=== PATIENT | male | born 1985 | race Caucasian/White ===

== ENCOUNTER 2021-07-01 18:52 | Emergency (ER) | payer SELFPAY ==
[~2021-07-01] VITALS: Ht 177.8 cm; Wt 95.3 kg
--- OUTSIDE RECORDS SUMMARY | 2021-07-01 19:03 | XMS REPORT | Clinical Summary ---
Author Author [facility] Organization [facility] Address Unknown Phone Unavailable Care Team Providers Care Retail Pos Specialist Name Role Phone PCP Unavailable Source Comments [facility] (Labor and Delivery) documents do not appear in the [facility] Allergies Not on File Medications Please verify current medications with patient. Not on file Active Problems Not on file Social History Date Tobacco Use Types Packs/Day Years Used Never Assessed Sex Assigned at Date Recorded Not on file Last Filed Vital Signs Not on file Plan of Treatment Health Maintenance Due Date Last Done Comments Lipid Panel 1986 COVID-19 Vaccine (1) 1991 Influenza Vaccine (#1) 2021 HPV Vaccine Aged Out No longer eligible based on patient's age to complete this topic Hepatitis A Vaccine Aged Out No longer eligible based on patient's age to complete this topic Hepatitis B Vaccine Aged Out No longer eligible based on patient's age to complete this topic Hib Vaccine Aged Out No longer eligible based on patient's age to complete this topic IPV Vaccine Aged Out No longer eligible based on patient's age to complete this topic Meningococcal Vaccine Aged Out No longer eligib le based on patient's age to (MCV4) complete this topic Pneumococcal Vaccine: Aged Out No longer eligib le based on patient's age to Pediatrics (0 to 5 Years) complete this topic and At-Risk Patients (6 to 64 Years) Rotavirus Vaccine Aged Out No longer eligible based on patient's age to complete this topic Results Not on filefrom Last 3 Months
--- OUTSIDE RECORDS SUMMARY | 2021-07-01 19:03 | XMS REPORT ---
Author Author German CHOUDHURY Organization [facility] Address [address] [place], [place] [id number] Care Team Providers Care Site Leasing Agent Name Role Phone AISHA CHOUDHURY PCP AISHA CHOUDHURY PreferredProvider Allergies and Adverse Reactions Name Reaction Notes No known drug allergy Plan of Treatment Not available. Medications Active Name Start Date Estimated Completion Date SIG Co mments clonazepam 1 mg oral tablet 04/11/2021 TAKE 1/2 TO 1 TABLET BY MOUTH TWICE DAILY NEEDED Adderall 30 mg oral tablet 05/10/2021 06/09/2021 take 1 tablet (30 mg) by oral route 2 times per day before breakfast and at noon for 30 days Name Start Date Expiration Date SIG Comments Zithromax Z-Kwame 250 mg oral tablet 04/27/2018 05/02/2018 take 2 tablets (500 mg) by oral route once daily for 1 day then 1 tablet (250 mg) by oral route once daily for 4 days Suphedrine 30 mg oral tablet 11/15/2018 11/15/2018 rozina e 1-2 tablets by oral route every 4 hours as needed Zithromax Z-Kwame 250 mg oral tablet 03/02/2019 03/07/2019 take 2 tablets (500 mg) by oral route once daily for 1 day then 1 tablet (250 mg) by oral route once daily for 4 days doxycycline hyclate 100 mg oral tablet 06/02/2019 06/12/2019 take 1 tablet (100 mg) by oral route 2 times per day for 10 days methylprednisolone 4 mg oral tablets,dose pack 07/08/2019 FOLLOW PACKAGE DIRECTIONS UNTIL ALL TAKEN prednisone 20 mg oral tablet 02/16/2020 02/24/2020 4X2 days 3x2 days 2x2 days 1x2 days Cipro 500 mg oral tablet 02/16/2020 02/26/2020 take 1 tablet (500 mg) by oral route 2 times per day for 10 days Ciprodex 0.3-0.1 % otic (ear) drops,suspension 02/16/2020 instill 4 drops into left ear by otic route 2 times per day for 7 days Discontinued Name Start Date Discontinued Date SIG Comments Jose Escudero 100 mg oral capsule 08/21/2017 10/04/2018 take 1-2 capsule by oral route Q4-6H PRN cough amoxicillin 500 mg oral capsule 08/31/2017 10/04/2018 take one TID Provigil 200 mg oral tablet 03/02/2018 08/10/2018 take 1 tablet (200 mg) by oral route once daily in the morning for 30 days Flagyl 500 mg oral tablet 03/19/2018 10/04/2018 take 2 tablets (1 gram) by oral route every 6 hours for 10 days Xanax 0.5 mg oral tablet 04/22/2018 10/04/2018 1/2 to 1 twice daily as needed for anxiety must last 30 days prednisone 20 mg oral tablet 05/13/2018 10/04/2018 4 x 2 days, 3 x 2 days, 2 x 2 days 1 x 2 days Chantix Starting Month Box 0.5 mg (11)- 1 mg (42) oral tablets,dose pack 08/09/2018 10/04/2018 TAKE DIRECTED FOR 30 DAYS promethazine-codeine 6.25-10 mg/5 mL oral syrup 08/09/2018 10/04/2018 TAKE 5 MILLILITERS BY ORAL ROUTE EVERY 4-6 HOURS NEEDED, NOT TO EXCEED 30 ML IN 24 HOURS Cipro 500 mg oral tablet 08/09/2018 10/04/2018 TAKE 1 TABLET (500 MG) BY ORAL ROUTE 2 TIMES PER DAY FOR 10 DAYS fluticasone propionate 50 mcg/actuation nasal spray,suspensi on 11/11/2018 09/12/2019 spray 1 spray (50 mcg) in each nostril by intranasal r oute once daily uvdzhcwg-xeudhfgca-HU 3.5-10,000-1 mg/mL-unit/mL-% radha c (ear) drops,suspension 11/15/2018 07/19/2019 instill 4 drops into affecte d ear(s) by otic route 3 times per day Cipro 500 mg oral tablet 11/15/2018 12/04/2018 take 1 tablet (500 mg) by oral route 2 times per day Ventolin HFA 90 mcg/actuation inhalation HFA aerosol inhaler 12/1311/20/2020 inhale 1 puff (90 mcg) by inhalation route every 6 hours as needed alprazolam 0.5 mg oral tablet 01/12/2019 07/19/2019 TA KE 06/09 TO 1 TABLET BY MOUTH TWICE DAILY NEEDED FOR ANXIETY- MUST LAST 30 DAYS promethazine-codeine 6.25-10 mg/5 mL oral syrup 03/08/2019 07/19/2019 take 5 milliliters by oral route every 6 hours as needed, not to exceed 30 mL in 24 hours prednisone 20 mg oral tablet 06/02/2019 07/19/2019 4x2 days 3x2 days 2x2 days 1x2 days Medrol (Kwame) 4 mg oral tablets,dose pack 06/16/2019 07/19/2019 take as directed Symbicort 160-4.5 mcg/actuation inhalation HFA aerosol inhal er 06/16/2019 11/20/2020 inhale 2 puffs by inhalation route 2 chris es per day in the morning and evening modafinil 200 mg oral tablet 06/20/2019 07/19/2019 ROZINA E 1 TABLET BY MOUTH EVERY DAY Adderall XR 20 mg oral capsule,extended release 24hr 08/16/2019 09/08/2019 take 1 capsule (20 mg) by oral route once daily in the morning upon awakening for 30 days promethazine-codeine 6.25-10 mg/5 mL oral syrup 02/16/2020 04/09/2020 take 5 milliliters by oral route every 6 hours as needed, not to exceed 30 mL in 24 hours Maxitrol 3.5mg/mL-10,000 unit/mL-0.1 % ophthalmic (eye ) drops,suspension 02/16/2020 04/09/2020 1 drop into affected eye(s) by ophthalmic route every 4 hours for 3 days Problem List Description Status Onset VIVI (generalized anxiety disorder) Active 12/30 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 Moderate episode of recurrent major depressive disorder Acti ve 12/04/2018 Concentration deficit Active 07/19/2019 Generalized anxiety disorder Active 07/19/2019 Attention deficit disorder (ADD) without hyperactivity Activ e 09/12/2019 Vital Signs Date Time BP-Sys(mm[Hg] BP-Sharonda(mm[Hg]) HR(bpm) RR(rpm) Temp WT HT HC BMI BSA BMI Percentile O2 Sat(%) 05/14/2020 5:03:00 PM 73 {beats}/min 98.6 F 95 % 07/18/2019 4:42:00 PM 130 mm[Hg] 78 mm[Hg] 70 {beats}/min 16 rpm 98.8 F 198.562 lbs 71 in 27.6936 kg/m2 2.1241 m2 97 % 03/08/2019 12:58:00 PM 128 mm[Hg] 86 mm[Hg] 68 {beats}/min 18 rpm 98.2 F 194 lbs 71 in 27.06 kg/m2 2.10 m2 98 % 12/21/2018 3:18:00 PM 170 mm[Hg] 100 mm[Hg] 90 {beats}/min 18 rpm 98.1 F 194 lbs 70 in 27.8358 kg/m2 2.0847 m2 98 % 11/24/2018 3:21:00 PM 108 mm[Hg] 60 mm[Hg] 56 {beats}/min 16 rpm 98.4 F 199 lbs 98 % 11/15/2018 2:45:00 PM 134 mm[Hg] 70 mm[Hg] 84 {beats}/min 18 rpm 98.1 F 197 lbs 70 in 28.2663 kg/m2 2.1008 m2 98 % 11/04/2018 1:27:00 PM 120 mm[Hg] 74 mm[Hg] 78 {beats}/min 18 rpm 98.2 F 196 lbs 70 in 28.12 kg/m2 2.10 m2 98 % 10/04/2018 2:47:00 PM 120 mm[Hg] 70 mm[Hg] 71 {beats}/min 18 rpm 99.1 F 199.437 lbs 70 in 28.616 kg/m2 2.1137 m2 97 % 07/01/2018 11:13:00 AM 124 mm[Hg] 72 mm[Hg] 69 {beats}/min 18 rpm 98.6 F 200 lbs 70 in 28.70 kg/m2 2.12 m2 98 % 05/03/2018 9:23:00 AM 138 mm[Hg] 80 mm[Hg] 88 {beats}/min 18 rpm 98.4 F 198 lbs 98 % 04/27/2018 8:44:00 AM 146 mm[Hg] 72 mm[Hg] 88 {beats}/min 18 rpm 98.4 F 201 lbs 98 % 04/07/2018 9:10:00 AM 132 mm[Hg] 78 mm[Hg] 80 {beats}/min 18 rpm 98.4 F 209 lbs 70 in 29.9881 kg/m2 2.1638 m2 98 % 03/02/2018 3:18:00 PM 122 mm[Hg] 70 mm[Hg] 75 {beats}/min 18 rpm 98.1 F 210 lbs 70 in 30.13 kg/m2 2.17 m2 97 % 12/16/2017 8:53:00 AM 140 mm[Hg] 82 mm[Hg] 78 {beats}/min 18 rpm 98.4 F 212 lbs 70 in 30.4185 kg/m2 2.1793 m2 98 % 09/15/2017 12:54:00 PM 128 mm[Hg] 84 mm[Hg] 72 {beats}/min 18 rpm 98 F 225 lbs 68 in 34.21 kg/m2 2.21 m2 99 % 08/21/2017 11:21:00 AM 138 mm[Hg] 84 mm[Hg] 80 {beats}/min 18 rpm 98.2 F 213 lbs 70 in 30.562 kg/m2 2.1844 m2 97 % 07/21/2017 1:18:00 PM 128 mm[Hg] 78 mm[Hg] 72 {beats}/min 18 rpm 98 F 214 lbs 70 in 30.71 kg/m2 2.19 m2 98 % 12/30/2016 8:28:00 AM 138 mm[Hg] 86 mm[Hg] 68 {beats}/min 16 rpm 96.8 F 223 lbs 69 in 32.931 kg/m2 2.2191 m2 98 % Social History Name Description Comments Tobacco Current every day smoker Alcohol Never Uses seatbelts History of Procedures Date Ordered Description Order Status 02/20/2017 12:00 AM COMPLETE CBC W/AUTO DIFF WBC Returned 02/20/2017 12:00 AM COMPREHEN METABOLIC PANEL Returned 02/20/2017 12:00 AM LIPID PANEL Returned 02/20/2017 12:00 AM ROUTINE VENIPUNCTURE Reviewed 08/21/2017 12:00 AM THER/PROPH/DIAG INJ SC/IM Reviewed 08/21/2017 12:00 AM Decadron 8mg Injection Reviewed 08/21/2017 12:00 AM Depo-Medrol 80mg Injection Reviewed 12/16/2017 12:00 AM THER/PROPH/DIAG INJ SC/IM Reviewed 12/16/2017 12:00 AM Toradol 60 Mg Injection Reviewed 12/16/2017 12:00 AM Depo-Medrol 80mg Injection Reviewed 12/16/2017 12:00 AM Decadron 8mg Injection Reviewed 02/25/2018 12:00 AM THER/PROPH/DIAG INJ SC/IM Reviewed 02/25/2018 12:00 AM Decadron 8mg Injection Reviewed 02/25/2018 12:00 AM Depo-Medrol 80mg Injection Reviewed 04/07/2018 12:00 AM THER/PROPH/DIAG INJ SC/IM Reviewed 04/07/2018 12:00 AM Decadron 8mg Injection Reviewed 04/07/2018 12:00 AM Depo-Medrol 80mg Injection Reviewed 04/27/2018 12:00 AM THER/PROPH/DIAG INJ SC/IM Reviewed 04/27/2018 12:00 AM Decadron 8mg Injection Reviewed 04/27/2018 12:00 AM Depo-Medrol 80mg Injection Reviewed 04/27/2018 12:00 AM Rocephin 1 gram Injection Reviewed 07/01/2018 12:00 AM THER/PROPH/DIAG INJ SC/IM Reviewed 07/01/2018 12:00 AM Decadron 8mg Injection Reviewed 07/01/2018 12:00 AM Depo-Medrol 80mg Injection Reviewed 10/04/2018 12:00 AM THER/PROPH/DIAG INJ SC/IM Reviewed 10/04/2018 12:00 AM Decadron 8mg Injection Reviewed 10/04/2018 12:00 AM Depo-Medrol 80mg Injection Reviewed 11/04/2018 12:00 AM THER/PROPH/DIAG INJ SC/IM Reviewed 11/04/2018 12:00 AM Decadron 8mg Injection Reviewed 11/04/2018 12:00 AM Depo-Medrol 80mg Injection Reviewed 11/15/2018 12:00 AM THER/PROPH/DIAG INJ SC/IM Reviewed 11/15/2018 12:00 AM Decadron 8mg Injection Reviewed 03/08/2019 12:00 AM THER/PROPH/DIAG INJ SC/IM Reviewed 03/08/2019 12:00 AM Decadron 8mg Injection Reviewed 03/08/2019 12:00 AM Depo-Medrol 80mg Injection Reviewed 03/08/2019 12:00 AM Rocephin 1 gram Injection Reviewed 07/18/2019 12:00 AM THER/PROPH/DIAG INJ SC/IM Reviewed 07/18/2019 12:00 AM Decadron 8mg Injection Reviewed 07/18/2019 12:00 AM Depo-Medrol 80mg Injection Reviewed 05/14/2020 12:00 AM COVID-19 Testing Returned Results Summary Not available. History Of Immunizations Not available. History of Past Illness Name Date of Onset Comments Anxiety Bronchitis Depression VIVI (generalized anxiety disorder) 12/30/2016 Shift work sleep disorder 09/16/2017 Gallbladder Disorder Moderate episode of recurrent major depressive disorder 11/07 Concentration deficit 07/19/2019 Generalized anxiety disorder 07/19/2019 Attention deficit disorder (ADD) without hyperactivity 09/11 Moderate Chronic VIVI (generalized anxiety disorder) Stable J 2016 8:28AM medical terminologist current use of therapeutic drug Feb 20 2017 10:53A M Hyperlipidemia, mild Feb 20 2017 10:53AM Smoker Jul 21 2017 1:19PM Tobacco abuse Jul 21 2017 1:19PM VIVI (generalized anxiety disorder) Jul 21 2017 1:19PM Medication management Jul 21 2017 1:19PM Cough Aug 21 2017 11:24AM Purulent postnasal drainage Aug 21 2017 11:24AM Chest congestion Aug 21 2017 11:24AM Upper respiratory tract infection, unspecified type Aug 21 2 018 11:24AM Smoker Aug 21 2017 11:24AM Severe Acute Shift work sleep disorder Sep 15 2017 12:55PM Moderate Chronic VIVI (generalized anxiety disorder) Stable A 2017 12:55PM Acute midline low back pain without sciatica Dec 16 2017 8: 53AM Contusion of right side of back, initial encounter Dec 16 8:53AM Cough Mar 02 2018 3:23PM Chest congestion Mar 02 2018 3:23PM Medication management Mar 02 2018 3:23PM Upper respiratory tract infection, unspecified type Mar 02 2 018 3:23PM Acute seasonal allergic rhinitis, unspecified trigger Mar 02 2018 3:23PM Severe Chronic Daytime sleepiness Mar 02 2018 3:23PM Purulent postnasal drainage Apr 07 2018 9:10AM Sinus pressure Apr 07 2018 9:10AM Acute seasonal allergic rhinitis, unspecified trigger Apr 07 2018 9:10AM Upper respiratory tract infection, unspecified type Apr 07 2 018 9:10AM Upper respiratory tract infection, unspecified type Apr 27 2 018 8:45AM Cough Apr 27 2018 8:45AM Fever Apr 27 2018 8:45AM Acute bronchitis, unspecified organism May 03 2018 9:23AM Chest congestion May 03 2018 9:23AM Smoker May 03 2018 9:23AM Productive cough May 03 2018 9:23AM Purulent postnasal drainage Apr 27 2018 8:45AM Chest congestion Apr 27 2018 8:45AM Cough Jul 01 2018 11:15AM Purulent postnasal drainage Jul 01 2018 11:15AM Upper respiratory tract infection, unspecified type Jul 01 2 019 11:15AM Sinus pressure Jul 01 2018 11:15AM Chest congestion Jul 01 2018 11:15AM Smoker Jul 01 2018 11:15AM Chest congestion Oct 04 2018 2:48PM Sinus pressure Oct 04 2018 2:48PM Acute seasonal allergic rhinitis, unspecified trigger Oct 04 2018 2:48PM Generalized anxiety disorder Oct 04 2018 2:48PM Medication management Oct 04 2018 2:48PM Purulent postnasal drainage Oct 04 2018 2:48PM Upper respiratory tract infection, unspecified type Oct 04 019 2:48PM Dysfunction of right eustachian tube Nov 04 2018 1:30PM Purulent postnasal drainage Nov 04 2018 1:30PM Acute seasonal allergic rhinitis, unspecified trigger Nov 04 2018 1:30PM Nasal congestion with rhinorrhea Nov 04 2018 1:30PM Dysfunction of both eustachian tubes Nov 15 2018 2:46PM Sinus pressure Nov 15 2018 2:46PM Purulent postnasal drainage Nov 15 2018 2:46PM Upper respiratory tract infection, unspecified type Nov 15 019 2:46PM Smoker Nov 15 2018 2:46PM Moderate episode of recurrent major depressive disorder Nov 24 2018 3:22PM Anxiety Nov 24 2018 3:22PM Medication management Nov 24 2018 3:22PM Generalized anxiety disorder Dec 21 2018 3:18PM Moderate episode of recurrent major depressive disorder Dec 21 2018 3:18PM Medication management Dec 21 2018 3:18PM Dysfunction of both eustachian tubes Mar 08 2019 12:59PM Cough Mar 08 2019 12:59PM Chest congestion Mar 08 2019 12:59PM Upper respiratory tract infection, unspecified type Mar 08 2 019 12:59PM Concentration deficit Jul 18 2019 4:44PM Shift work sleep disorder Jul 18 2019 4:44PM Hypersomnolence disorder, acute, moderate Jul 18 2019 4:44P M Smoker Jul 18 2019 4:44PM Current moderate episode of major depres sive disorder, unspecified whether recurrent Jul 18 2019 4:44PM Generalized anxiety disorder Jul 18 2019 4:44PM Attention deficit disorder (ADD) without hyperactivity Sep 09 2019 12:47PM Medication care plan discussed with patient Sep 09 2019 12:4 7PM Concentration deficit Sep 09 2019 12:47PM Medication refill Nov 30 2019 8:07AM Attention deficit disorder (ADD) without hyperactivity Nov 072019 8:07AM VIVI (generalized anxiety disorder) Nov 30 2019 8:07AM Acute otitis externa of right ear, unspecified type Feb 15 11:41AM Ear pain, right Feb 16 2020 11:41AM Medication refill Mar 30 2020 10:57AM Attention deficit disorder (ADD) without hyperactivity Mar 092019 10:57AM VIVI (generalized anxiety disorder) Mar 30 2020 10:57AM Encounter for laboratory testing for COVID-19 virus May 14 11:18AM Cough May 14 2020 11:18AM Shortness of breath May 14 2020 11:18AM Fatigue May 14 2020 11:18AM Chills May 14 2020 11:18AM Fever, unspecified May 14 2020 11:18AM Sore throat May 14 2020 11:18AM Myalgia May 14 2020 11:18AM Headache May 14 2020 11:18AM Loss of smell May 14 2020 11:18AM Loss of taste May 14 2020 11:18AM Medication refill Nov 20 2020 2:34PM Attention deficit disorder (ADD) without hyperactivity Nov 062020 2:34PM VIVI (generalized anxiety disorder) Nov 20 2020 2:34PM Medication refill Apr 11 2021 1:32PM Attention deficit disorder (ADD) without hyperactivity Apr 11 2021 1:32PM VIVI (generalized anxiety disorder) Apr 11 2021 1:32PM Payers Insurance Name Company Name Plan Name Plan Number Policy Number [place] Group Number Start Date [id number] N/ A Cigna Cigna [id number] N/A [facility] [id number] [facility] [id number] N/A [employer] - COVID 19 Test [id number] N/A History of Encounters Visit Date Visit Type Provider 04/11/2021 Office visit AISHA CHOUDHURY PA 11/20/2020 Office visit AISHA CHOUDHURY PA 05/14/2020 Office visit Miranda PIMENTEL RN 03/26/2020 Office visit AISHA CHOUDHURY PA 02/16/2020 Office visit AISHA CHOUDHURY PA 11/30/2019 Office visit AISHA CHOUDHURY PA 09/08/2019 Office visit AISHA CHOUDHURY PA 07/18/2019 Office visit AISHA CHOUDHURY PA 03/22/2019 [facility] Nathan Samayoa MD 03/08/2019 Office visit AISHA CHOUDHURY PA 12/21/2018 Office visit AISHA CHOUDHURY PA 11/24/2018 Office visit AISHA CHOUDHURY PA 11/15/2018 Office visit AISHA CHOUDHURY PA 11/04/2018 Office visit AISHA CHOUDHURY PA 10/04/2018 Office visit AISHA CARNES 07/01/2018 Office visit AISHA CHOUDHURY PA 05/03/2018 Office visit AISHA CHOUDHURY PA 04/27/2018 Office visit AISHA CHOUDHURY PA 04/07/2018 Office visit AISHA CHOUDHURY PA 02/25/2018 Office visit AISHA CARNES 12/16/2017 Office visit AISHA CHOUDHURY PA 09/15/2017 Office visit AISHA CHOUDHURY PA 08/21/2017 Office visit AISHA CHOUDHURY PA 07/21/2017 Office visit AISHA CHOUDHURY PA 02/20/2017 Laboratory AISHA CHOUDHURY PA 12/30/2016 Office visit AISHA CARNES
[2021-07-01] MEDS ORDERED: KETOROLAC 30 MG/ML VIAL IVP STA (19:35)
[2021-07-01] MEDS ORDERED: LACTATED RINGERS 1,000 ML IV ONE ×2 (19:45→20:45)
[2021-07-01 19:56] LABS: BASOPHILS % (AUTO) 0 % (0-10); EOSINOPHILS # (AUTO) 0.3 10^3/uL (0.0-0.3); EOSINOPHILS % (AUTO) 1 % (0-10); HEMATOCRIT 46 % (40-54); HEMOGLOBIN 14.9 g/dL (13.3-17.7); LYMPHOCYTES # (AUTO) 4.8 10^3/uL (1.0-4.0); LYMPHOCYTES % (AUTO) 23 % (12-44); MEAN CORPUSCULAR HEMOGLOBIN 29 pg (25-34); MEAN CORPUSCULAR HGB CONC 32 g/dL (32-36); MEAN CORPUSCULAR VOLUME 91 fL (80-99); MONOCYTES % (AUTO) 5 % (0-12); NEUTROPHILS # (AUTO) 14.6 10^3/uL (1.8-7.8); NEUTROPHILS % (AUTO) 70 % (42-75); PLATELET COUNT 322 10^3/uL (130-400); WHITE BLOOD COUNT 20.8 10^3/uL (4.3-11.0)
--- NOTE | 2021-07-01 20:04 | Diagnostic Imaging Report ---
PROCEDURE: CT urinary tract, rule out kidney stone. TECHNIQUE: Multiple contiguous axial images were obtained through the abdomen and pelvis without the use of intravenous contrast. Auto Exposure Controls were utilized during the CT exam to meet ALARA standards for radiation dose reduction. INDICATION: Pain and difficulty urinating, bleeding. COMPARISON with study of 11/22/2014 FINDINGS: While there is no hydroureteronephrosis, there is a punctate nonobstructing 2 mm stone within a left renal lower pole calyx. No opaque ureteral or bladder stone. No perinephric or periureteric edema. The appendix normal. There is no diverticulitis. There is no bowel obstruction. The gallbladder absent. No bile duct dilatation. The pancreas, spleen and adrenals nonacute. IMPRESSION: Punctate nonobstructing left renal stone. No ureteral calculus or hydronephrosis. Normal appendix. No diverticulitis. No acute appearing abnormality found. Dictated by: Dictated on workstation # [id number]
[2021-07-01 20:11] LABS: ALBUMIN 4.3 GM/DL (3.2-4.5); BILIRUBIN,TOTAL 0.3 MG/DL (0.1-1.0); CALCIUM 8.9 MG/DL (8.5-10.1); CREATININE SERUM 0.95 MG/DL (0.60-1.30); POTASSIUM 4.3 MMOL/L (3.6-5.0); TOTAL PROTEIN 7.2 GM/DL (6.4-8.2)
[2021-07-01 20:15] LABS: EOSINOPHILS % (MANUAL) 1 %; LYMPHOCYTES % (MANUAL) 26 %; MONOCYTES % (MANUAL) 5 %; NEUTROPHILS % (MANUAL) 68 %; RBC MORPH NORMAL
--- NOTE | 2021-07-01 20:15 | ED GU-Male ---
General Chief Complaint: - Reproductive Stated Complaint: BLEEDING, HAVING PROBLEMS GOING TO BATHROOM, PAIN Nursing Triage Note: PT ARRIVED BY PRIVATE VEHICLE WITH CHIEF COMPLAINT OF DIFFICULTY URINATING, BLEEDING AND PAIN. PT IS ALERT, ORIENTED X 4 AND AMBULATORY. PT IS VERY ANXIOUS. PT STATED ONSET WAS YESTERDAY AROUND 1000 WHEN HE HAD SUDDEN ONSET OF PAIN. PT STATED HE HAS NOT BEEN ABLE TO URINATE AND HASN'T HAD A BM IN 4 DAYS. PT STATED WHEN TRYING HE HAS BLEEDING. PT STATED PAIN STARTED IN GROIN AREA AND HAD MOVED TO BLADDER AND FLANK PAIN. PT HAS HAD GALLBLADDER REMOVED. PT TAKES MEDICATION FOR ADHD AND ANXIETY. PT HAS NOT ALLERGIES TO MEDICATIONS. PT IS UNABLE TO PROVIDE URINE SAMPLE ON ARRIVAL. VITAL SIGNS WERE COMPLETED. REPORT WAS GIVEN TO PROVIDER. Source: patient History of Present Illness Date Seen by Provider: Jul 01, 2021 Time Seen by Provider: 19:34 Initial Comments PT ARRIVES VIA POV FROM HOME HAD SUDDEN ONSET OF SEVERE BILATERAL GROIN PAIN, RADIATING TO BILATERAL LOWER ABDOMEN AND SUPRAPUBIC AREA, AND INTO BILATERAL FLANKS SINCE 10 AM YESTERDAY HAS HAD SOME DIFFICULTY URINATING TODAY--PRESSURE AND URGENCY, AND HAS TO STRAIN TO URINATE, BUT NO ACTUAL BURNING ON URINATION. NO BLOOD IN URINE. AT TIMES HE DESCRIBES SPASMS WHEN HE TRIES TO URINATE. HAS CHRONIC CONSTIPATION, AND HEMORRHOIDS AND HAS NOT HAD A BM IN 4 DAYS--HAS BEEN STRAINING VERY HARD TO HAVE A BM AND TO URINATE, AND NOW IS HAVING A LITTLE BIT OF RECTAL BLEEDING AND RECTAL PAIN, WHEN HE STRAINS NO FEVER NO NAUSEA/VOMITING--STATES HE HAS BEEN EATING AND DRINKING NORMALLY NO HISTORY OF GENITO/URINARY PROBLEMS. OTHER THAN CONSTIPATION AND HEMORRHOIDS, HAS NOT HAD OTHER GASTROINTESTINAL PROBLEMS HAS NOT TAKEN ANYTHING FOR SYMPTOMS PCP: CALOS CHOUDHURY IN [facility] Allergies and Home Medications Allergies Coded Allergies: No Known Allergies (Verified Allergy, Unknown, 12/15/05) Patient Home Medication List Doxycycline Hyclate (Doxycycline Hyclate) 100 Mg Tablet, 100 MG PO BID Prescribed by: MALI OSBORNE on 07/01/212120 Ketorolac Tromethamine (Ketorolac Tromethamine) 10 Mg Tablet, 10 MG PO Q6H Prescribed by: MALI OSBORNE on 07/01/212120 Tamsulosin HCl (Flomax) 0.4 Mg Cap, 0.4 MG PO DAILY Prescribed by: MALI OSBORNE on 07/01/212120 Review of Systems Review of Systems Constitutional: no symptoms reported Respiratory: no symptoms reported Cardiovascular: no symptoms reported Gastrointestinal: see HPI Genitourinary: see HPI Musculoskeletal: see HPI, back pain Skin: no symptoms reported Psychiatric/Neurological: Anxiety Endocrine: No Symptoms Reported Hematologic/Lymphatic: No Symptoms Reported Past Xsinwgg-[id number]-Smuahw Hx Patient Social History Tobacco Use?: Yes (1/2 PPD) Tobacco type used: Cigarettes Smoking Status: Current Everyday Smoker Substance use?: Yes Substance type: Amphetamines, Methamphetamine, Misuse of prescript meds, Marijuana Additional substance use comme: UDS + FOR AMPHETAMINES/METHAMPHETAMINES AND BENZODIAZEPINES 07/01/21 Alcohol Use?: No Pt feels they are or have been: No Past Medical History Surgeries: Yes Gallbladder Respiratory: No Cardiac: No Neurological: No Genitourinary: No Gastrointestinal: Yes (S/P CHOLECYSTECTOMY) Chronic Constipation, Hemorrhoids, Gall Bladder Disease Musculoskeletal: No Endocrine: No HEENT: No Cancer: No Psychosocial: Yes ADD/ADHD, Anxiety Integumentary: No Blood Disorders: No Physical Exam Vital Signs Vital Signs - First Documented 07/01/21 19:16 Temp 37.2 Pulse 94 Resp 16 B/P (MAP) 126/73 (90) Pulse Ox 97 O2 Delivery Room Air Capillary Refill : Less Than 3 Seconds Height, Weight, BMI Height: '" Weight: lbs. oz. kg; 30.00 BMI Method: General Appearance: WD/WN, other (ANXIOUS, PACING. SPEECH VERY RAPID AND SOMEWHAT ERRATIC AND SOMEWHAT MUMBLED. ) Neck: normal inspection Cardiovascular: regular rate, rhythm, no murmur Respiratory: normal breath sounds, no respiratory distress, no accessory muscle use Gastrointestinal: normal bowel sounds, soft, no organomegaly Male: no hernia; No erythema, No inguinal tenderness; testicular tenderness (BILATERAL TESTICULAR TENDERNESS, BUT NOT SPECIFICALLY OVER EPIDIDYMIS AREAS. NO SWELLING OR ERYTHEMA), other (NO PERINEAL TENDERNESS) Genital/Rectal: normal rectal tone, tenderness (TENDERNESS TO ANUS, WITH MILD, NON-INFLAMED HEMORRHOIDS, NO OBVIOUS RECTAL FISSURE. NO SIGNS OF INFECTION TO PERIANAL AREA. NO BLOOD NOTED. NO STOOL IN RECTUM. SOME PROSTATE TENDERNESS, BU T PROSTATE IS SOFT AND NOT ENLARGED. ) Back: CVA tenderness (R), CVA tenderness (L) Extremities: normal inspection Neurologic/Psychiatric: intern architect II-XII nml as tested, no motor/sensory deficits, alert, oriented x 3 Skin: normal color, warm/dry, tattoos/piercings (EXTENSIVE TATTOOS) Progress/Results/Core Measures Suspected Sepsis SIRS Temperature: Pulse: 94 Respiratory Rate: 16 Laboratory Tests 07/01/21 19:42: White Blood Count 20.8H Blood Pressure 126 /73 Mean: 90 Laboratory Tests 07/01/21 19:42: Creatinine 0.95, Platelet Count 322, Total Bilirubin 0.3 Results/Orders Lab Results Laboratory Tests Test 07/01/21 19:42 07/01/21 20:59 Range/Units White Blood Count 20.8 H 4.3-11.0 10^3/uL Red Blood Count 5.10 4.30-5.52 10^6/uL Hemoglobin 14.9 13.3-17.7 g/dL Hematocrit 46 40-54 % Mean Corpuscular Volume 91 80-99 fL Mean Corpuscular Hemoglobin 29 25-34 pg Mean Corpuscular Hemoglobin Concent 32 32-36 g/dL Red Cell Distribution Width 11.9 10.0-14.5 % Platelet Count 322 130-400 10^3/uL Mean Platelet Volume 11.0 9.0-12.2 fL Immature Granulocyte % (Auto) 1 % Neutrophils (%) (Auto) 70 42-75 % Lymphocytes (%) (Auto) 23 12-44 % Monocytes (%) (Auto) 5 0-12 % Eosinophils (%) (Auto) 1 0-10 % Basophils (%) (Auto) 0 0-10 % Neutrophils # (Auto) 14.6 H 1.8-7.8 10^3/uL Lymphocytes # (Auto) 4.8 H 1.0-4.0 10^3/uL Monocytes # (Auto) 1.0 0.0-1.0 10^3/uL Eosinophils # (Auto) 0.3 0.0-0.3 10^3/uL Basophils # (Auto) 0.0 0.0-0.1 10^3/uL Immature Granulocyte # (Auto) 0.1 0.0-0.1 10^3/uL Neutrophils % (Manual) 68 % Lymphocytes % (Manual) 26 % Monocytes % (Manual) 5 % Eosinophils % (Manual) 1 % Blood Morphology Comment NORMAL Sodium Level 140 135-145 MMOL/L Potassium Level 4.3 3.6-5.0 MMOL/L Chloride Level 109 H 98-107 MMOL/L Carbon Dioxide Level 21 21-32 MMOL/L Anion Gap 10 5-14 MMOL/L Blood Urea Nitrogen 10 7-18 MG/DL Creatinine 0.95 0.60-1.30 MG/DL Estimat Glomerular Filtration Rate 107 BUN/Creatinine Ratio 11 Glucose Level 104 70-105 MG/DL Calcium Level 8.9 8.5-10.1 MG/DL Corrected Calcium 8.7 8.5-10.1 MG/DL Total Bilirubin 0.3 0.1-1.0 MG/DL Aspartate Amino Transf (AST/SGOT) 17 5-34 U/L Alanine Aminotransferase (ALT/SGPT) 23 0-55 U/L Alkaline Phosphatase 80 40-136 U/L Total Protein 7.2 6.4-8.2 GM/DL Albumin 4.3 3.2-4.5 GM/DL Urine Color YELLOW Urine Clarity CLEAR Urine pH 6.0 5-9 Urine Specific Mobile >=1.030 1.016-1.022 Urine Protein NEGATIVE NEGATIVE Urine Glucose (UA) NEGATIVE NEGATIVE Urine Ketones TRACE H NEGATIVE Urine Nitrite NEGATIVE NEGATIVE Urine Bilirubin 1+ H NEGATIVE Urine Urobilinogen 0.2 < = 1.0 MG/DL Urine Leukocyte Esterase NEGATIVE NEGATIVE Urine RBC (Auto) NEGATIVE NEGATIVE Urine RBC 0-2 /HPF Urine WBC NONE /HPF Urine Squamous Epithelial Cells NONE /HPF Urine Renal Epithelial Cells NONE /HPF Urine Crystals NONE /LPF Urine Bacteria NEGATIVE /HPF Urine Casts NONE /LPF Urine Mucus MODERATE H /LPF Urine Culture Indicated NO Urine Opiates Screen NEGATIVE NEGATIVE Urine Oxycodone Screen NEGATIVE NEGATIVE Urine Methadone Screen NEGATIVE NEGATIVE Urine Propoxyphene Screen NEGATIVE NEGATIVE Urine Barbiturates Screen NEGATIVE NEGATIVE Ur Tricyclic Antidepressants Screen NEGATIVE NEGATIVE Urine Phencyclidine Screen NEGATIVE NEGATIVE Urine Amphetamines Screen POSITIVE H NEGATIVE Urine Methamphetamines Screen POSITIVE H NEGATIVE Urine Benzodiazepines Screen POSITIVE H NEGATIVE Urine Cocaine Screen NEGATIVE NEGATIVE Urine Cannabinoids Screen NEGATIVE NEGATIVE My Orders Orders - MALI OSBORNE DO Ed Iv/Invasive Line Start (07/01/21 19:35) Ct Abd/Pelvis Wo(Kidney Stone) (07/01/21 19:35) Abdomen/Kub 1view (07/01/21 19:35) Cbc With Automated Diff (07/01/21 19:35) Comprehensive Metabolic Panel (07/01/21 19:35) Drug Screen Stat (Urine) (07/01/21 19:35) Ua Culture If Indicated (07/01/21 19:35) Ed Iv/Invasive Line Start (07/01/21 19:35) Lactated Ringers (Lr 1000 Ml Iv Solution (07/01/21 19:45) Ketorolac Injection (Toradol Injection) (07/01/21 19:35) Manual Differential (07/01/21 19:42) Ed Iv/Invasive Line Start (07/01/21 20:41) Lactated Ringers (Lr 1000 Ml Iv Solution (07/01/21 20:45) Tamsulosin Capsule (Flomax Capsule) (07/01/21 20:45) Chlamydia Trachomatis Urine (07/01/21 21:01) Neis Rony Dna Urine Test (07/01/21 21:01) Ceftriaxone 1 Gm Pre-Mix (Rocephin 1 Gm (07/01/21 21:22) Azithromycin Tablet (Zithromax Tablet) (07/01/21 21:22) Medications Given in ED Current Medications Medications Dose Ordered Sig/Silver Route Start Time Stop Time Status Last Admin Dose Admin Lactated Ringer's 1,000 ml @ 0 mls/hr Q0M ONCE IV 07/01/21 19:45 07/01/21 19:46 DC 07/01/21 19:51 1,000 MLS/HR Lactated Ringer's 1,000 ml @ 0 mls/hr Q0M ONCE IV 07/01/21 20:45 07/01/21 20:46 DC 07/01/21 21:02 1,000 MLS/HR Vital Signs/I&O 07/01/21 19:16 Temp 37.2 Pulse 94 Resp 16 B/P (MAP) 126/73 (90) Pulse Ox 97 O2 Delivery Room Air Capillary Refill : Less Than 3 Seconds Blood Pressure Mean: 90 Progress Note : Progress Note GIVEN IV FLUIDS AND TORADOL WITH IMPROVEMENT IN PAIN--PT IS ABLE TO LAY DOWN, AND IS MUCH CALMER/LESS ANXIOUS Diagnostic Imaging Comments CT ABDOMEN/PELVIS--PER RADIOLOGIST REPORT AT 2014 FINDINGS: While there is no hydroureteronephrosis, there is a punctate nonobstructing 2 mm stone within a left renal lower pole calyx. No opaque ureteral or bladder stone. No perinephric or periureteric edema. The appendix normal. There is no diverticulitis. There is no bowel obstruction. The gallbladder absent. No bile duct dilatation. The pancreas, spleen and adrenals nonacute. IMPRESSION: Punctate nonobstructing left renal stone. No ureteral calculus or hydronephrosis. Normal appendix. No diverticulitis. No acute appearing abnormality found. KUB--PER RADIOLOGIST REPORT AT 2033 FINDINGS: The bowel gas pattern normal. No suspicious calcifications. No obstruction. IMPRESSION: Unremarkable abdominal radiographs Reviewed: Reviewed by Me Departure Impression Primary Impression: Dysuria Additional Impressions: Constipation Hemorrhoids POSSIBLE PROSTATITIS Illicit drug use Disposition: HOME, SELF-CARE Condition: Improved Departure-Patient Inst. Decision time for Depature: 21:17 Referrals: NO,LOCAL PHYSICIAN (PCP) Primary Care Physician Patient Instructions: Constipation, Adult (DC), Dysuria, Adult (DC), Hemorrhoids (DC), Prostatitis (DC), How to Do a Sitz Bath Add. Discharge Instructions: LOTS OF CLEAR LIQUIDS--NO COFFEE, POP OR TEA TAKE MIRLAX DAILY FOR CONSTIPATION OVER THE COUNTER PREPARATION H FOR HEMORRHOID PAIN FOLLOW UP WITH FATUMA CHOUDHURY THIS WEEK FOR FURTHER CARE--CALL IN THE MORNING TO SCHEDULE APPOINTMENT All discharge instructions reviewed with patient and/or family. Voiced understanding. Scripts Tamsulosin HCl (Flomax) 0.4 Mg Cap 0.4 MG PO DAILY, #10 CAP Prov: MALI OSBORNE DO 07/01/21 Ketorolac Tromethamine (Ketorolac Tromethamine) 10 Mg Tablet 10 MG PO Q6H for Pain, #15 TAB Prov: MALI OSBORNE DO 07/01/21 Doxycycline Hyclate (Doxycycline Hyclate) 100 Mg Tablet 100 MG PO BID, #20 TAB 0 Refills Prov: MALI OSBORNE DO 07/01/21 MALI OSBORNE DO Jul 01, 2021 20:15
--- NOTE | 2021-07-01 20:31 | Diagnostic Imaging Report ---
INDICATION: Difficulty urinating, pain FINDINGS: The bowel gas pattern normal. No suspicious calcifications. No obstruction. IMPRESSION: Unremarkable abdominal radiographs Dictated by: Dictated on workstation # [id number]
[2021-07-01] MEDS ORDERED: TAMSULOSIN 0.4 MG (FLOMAX) CAP PO SCH (20:45)
[2021-07-01 21:05] LABS: BILIRUBIN,URINE 1+ (NEGATIVE); CLARITY,URINE CLEAR; COLOR,URINE YELLOW; GLUCOSE, URINE (UA) NEGATIVE (NEGATIVE); KETONES,URINE TRACE (NEGATIVE); LEUKOCYTE ESTERASE ,URINE NEGATIVE (NEGATIVE); NITRITE,URINE NEGATIVE (NEGATIVE); PROTEIN,URINE NEGATIVE (NEGATIVE)
[2021-07-01 21:12] LABS: BACTERIA,URINE NEGATIVE /HPF; RBC,URINE 0-2 /HPF
[2021-07-01 21:20] LABS: AMPHETAMINE SCREEN, URINE POSITIVE (NEGATIVE); BARBITURATE SCREEN URINE NEGATIVE (NEGATIVE); BENZODIAZEPINES SCREEN URINE POSITIVE (NEGATIVE); CANNABINOID SCREEN, URINE NEGATIVE (NEGATIVE); COCAINE SCREEN URINE NEGATIVE (NEGATIVE); METHADONE STAT NEGATIVE (NEGATIVE); METHAMPHETAMINE SCREEN URINE S POSITIVE (NEGATIVE); OPIATE SCREEN URINE NEGATIVE (NEGATIVE); OXYCODONE STAT NEGATIVE (NEGATIVE); PROPOXYPHENE STAT NEGATIVE (NEGATIVE); TRICYCLIC ANTIDEPRESSANTS SCRE NEGATIVE (NEGATIVE)
[2021-07-01] MEDS ORDERED: TMSL.4C PO (21:21)
[2021-07-01] MEDS ORDERED: DOXY100T2 PO (21:21)
[2021-07-01] MEDS ORDERED: KETO10TA PO (21:21)
[2021-07-01] MEDS ORDERED: AZITHROMYCIN 250 MG TAB (ZITHROMAX) PO STA (21:22)
[2021-07-01] MEDS ORDERED: cefTRIAXone 1 GM PRE-MIX 50 ML IV STA (21:22)
[2021-07-01 21:56] VITALS: BP 133/77
== END 2021-07-01 21:55 | disposition home or self-care (01) ==
LOC: EDUNIT# 18:52 → ER 18:59
DX: R30.0 Dysuria (principal); K59.00 Constipation, unspecified; K64.9 Unspecified hemorrhoids; F19.90 Other psychoactive substance use, unspecified, uncomplicated; F17.210 Nicotine dependence, cigarettes, uncomplicated
CPT/HCPCS: 36415; 74018; 74176; 80053; 80306; 81000; 85007; 85027; 87491; 87591